=== PATIENT | male | born 1990 | race African-American/Black ===

== ENCOUNTER 2020-12-07 07:46 | Emergency (ER) | payer OTHER ==
[~2020-12-07] VITALS: Ht 188 cm; Wt 92.4 kg
[2020-12-07] MEDS ORDERED: ACETAMINOPHEN 500 MG TAB PO ONE (08:30)
[2020-12-07] MEDS ORDERED: LIDOCAINE 5% (LIDODERM) PATCH TD ONE (08:30)
[2020-12-07] MEDS ORDERED: KETOROLAC 30 MG/ML 1ML VIAL IM ONE (08:30)
[2020-12-07] MEDS ORDERED: CYCLOBENZAPRINE 10MG TABLET PO ONE (08:30)
[2020-12-07] MEDS ORDERED: predniSONE 20 MG TAB PO ONE (08:30)
--- NOTE | 2020-12-07 08:56 | REP ---
INDICATION: right low backpain radiating to RLE. COMPARISON: None. TECHNIQUE: Axial CT images with multiplanar reformations. FINDINGS: There is only minimal degenerative disc disease evident. Disc heights and vertebral heights appear preserved. There is a slight retrolisthesis of L5 over S1. No evidence of fracture or other subluxation. No significant osseous canal stenosis or osseous foraminal narrowing. IMPRESSION: No acute findings. If symptoms persist, MRI recommended. <Electronically signed by Tomás Dominguez > 12/07/20 0817
[2020-12-07] MEDS ORDERED: LIDO5DIS41 TOP (09:58)
[2020-12-07] MEDS ORDERED: PRED20TA PO (09:58)
[2020-12-07] MEDS ORDERED: CYCL5TAB PO (09:58)
[2020-12-07 10:04] VITALS: BP 171/83
[2020-12-07] MEDS ORDERED: **NOTE PATIENT COMMENT** MISC XX SCH (21:00)
== END 2020-12-07 10:16 | disposition home or self-care (01) ==
LOC: M ED 07:46
DX: S39.012A Strain of muscle, fascia and tendon of lower back, initial encounter (principal); X58.XXXA Exposure to other specified factors, initial encounter; Y92.89 Other specified places as the place of occurrence of the external cause; M51.36 Other intervertebral disc degeneration, lumbar region; M43.10 Spondylolisthesis, site unspecified
CPT/HCPCS: 72131; 96372; 99283; J1885